=== PATIENT | male | born 2000 | race Caucasian/White ===

== ENCOUNTER 2023-08-30 17:30 | Emergency (ER) | payer SELFPAY ==
[2023-08-30 17:36] VITALS: BP 160/91; PULSE 57; RESP 18; TEMP 36.4; O2SAT 95
--- NOTE | 2023-08-30 17:45 | XRR_ITS ---
PROCEDURE INFORMATION: Exam: XR Chest Exam date and time: 08/30/2023 6:14 PM Age: 22 years old Clinical indication: Shortness of breath; Patient HX: HTN; Bradycardia; AMS TECHNIQUE: Imaging protocol: Radiologic exam of the chest. Views: 1 view. COMPARISON: No relevant prior studies available. FINDINGS: Lungs: Unremarkable. No consolidation. Pleural spaces: Unremarkable. No pleural effusion. No pneumothorax. Heart/Mediastinum: Unremarkable. No cardiomegaly. Bones/joints: Unremarkable. XR/XR chest 1V portable [id number] IMPRESSION: No acute findings.
--- NOTE | 2023-08-30 17:45 | ECG_ITS ---
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 [email or web address]
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
[2023-08-30 17:57] LABS: Glucose Point of Care 133 mg/dL (70-110)
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
[2023-08-30 17:58] LABS: Basophils % 0.1 %; Hematocrit 47.8 % (37-53); Lymphocytes # 0.5 10^3/uL (0.8-4.8); Lymphocytes % 2.2 %; Mean Corpuscular HGB Conc 33.1 g/dL (30-55); Mean Corpuscular Hemoglobin 29.4 pg (27-33); Mean Corpuscular Volume 88.8 fl (82-101); Mean Platelet Volume 10.4 fL (7.4-10.4); Monocytes % 4.6 %; Neutrophils # 18.95 10^3/uL (1.8-7.7); Neutrophils % 92.6 %; Nucleated Red Blood Cells % 0 %; Platelet Count 252 10^3/cmm (157-399); Red Blood Count 5.38 10^6/uL (3.85-5.65)
[2023-08-30 18:17] LABS: Ketone (Acetest) Serum Negative (Negative)
[2023-08-30 18:36] LABS: Alanine Aminotransferase 27 U/L (0-41); Albumin Level 5.3 g/dL (3.5-5.2); Alkaline Phosphatase 70 U/L (40-130); Anion Gap 13.6 (5-19); Aspartate Amino Transferase 21 U/L (0-40); Blood Urea Nitrogen 20 mg/dL (6-20); Calcium 9.4 mg/dL (8.5-10.5); Carbon Dioxide 30 mmol/L (22-29); Chloride 98 mmol/L (98-107); Glomerular Filtration Rate 91.8 mL/min (90-130); Glucose 159 mg/dL (65-115); INR 0.97 (0.8-1.2); Osmolality Calculated 292 mOsm/kg (285-295); Potassium 3.6 mmol/L (3.5-5.1); Sodium 138 mmol/L (136-145); Thyroid Stimulating Hormone 0.59 uIU/mL (0.27-4.20); Total Bilirubin 0.2 mg/dL (0.15-1.2); Total Protein 8.3 g/dL (6.6-8.7)
[2023-08-30] MEDS: sodium chloride 0.9% 1,000 ML 999 ML IV (18:49)
[2023-08-30 20:10] LABS: Urine Appearance Clear (CLEAR); Urine Color Yellow (Yellow); pH Urine 5 (5-7)
[2023-08-30 20:11] LABS: Add Urine Microscopic? YES; Bilirubin Urine Neg (Negative); Blood Urine Neg (Negative); Glucose Urine UA 1+ (Normal); Ketones Urine 1+ (Negative); Leukocyte Esterase Urine Negative (Negative); Nitrate Urine Negative (Negative); Protein Urine 1+ (Negative); Urobilinogen Urine Norm (Negative)
[2023-08-30 20:16] LABS: Amphetamines Screen Urine Negative (Negative); Bacteria Urine TRACE /hpf; Barbiturates Screen Urine Negative (Negative); Benzodiazepines Screen Urine Negative (Negative); Cocaine Screen Urine Positive (Negative); Opiate Screen Urine Negative (Negative); PCP Screen Urine Negative (Negative); RBC Urine 0-4 /hpf (0-2); Squamous Epithelial Cell Urine 0-4 /hpf (0-5); THC Screen Urine Positive (Negative); WBC Urine 0-4 /hpf (0-5)
[2023-08-30 20:17] LABS: Alcohol Level < 10 mg/dL (0-10)
== END 2023-08-30 21:09 | disposition home or self-care (01) ==
PROVIDERS: Emergency Medicine; Emergency Provider Emergency Medicine
DX: S06.0X0A Concussion without loss of consciousness, initial encounter (principal); R41.82 Altered mental status, unspecified; T40.5X5A Adverse effect of cocaine, initial encounter; T40.715A Adverse effect of cannabis, initial encounter; W22.8XXA Striking against or struck by other objects, initial encounter
CPT/HCPCS: 36416; 70450; 71045; 80053; 80306; 80307; 81001; 82009; 82962; 83735; 84443; 85025; 85610; 93005; 99285; J7030

== ENCOUNTER 2024-04-19 08:03 | Emergency (ER) | payer OTHER, SELFPAY ==
[2024-04-19 08:16] VITALS: BP 105/51; PULSE 44; TEMP 36.6; O2SAT 96; BMI 26.5
--- NOTE | 2024-04-19 08:18 | XR_ITS ---
WS: [id number] Examination: XR hand LT min 3V* [id number] Reason for Exam: trauma Date: April 19, 2024 Comparison: None. Findings: There is a bandage around the second through fifth digits. This causes mild artifact. Soft tissue injury is suspected involving these digits at the level of the proximal interphalangeal j oint. Overall the bone density is maintained. There is no destruction No displaced fracture or dislocations identified. XR/XR hand LT min 3V* [id number] Impression: Soft tissue injury suspected. I see no displaced fracture or dislocation.
--- NOTE | 2024-04-19 08:22 | ED_ITS ---
HPI - Extremity Injury (Upper) General: Chief Complaint: Wound/Laceration Stated Complaint: smashed left hand lac Time Seen by Provider: 04/19/24 08:18 History of Present Illness: 23-year-old male presents emergency room after a crush injury to his left hand. Involves his left second and third fingers. There is a mild amount of bleeding patient has a paper towel wrapped on his hand as a bandage when I first arrived. His last tetanus shot was within the last 4 to 5 years. He works at a [employer] and got his hand between a board and some rollers. He denies any other injuries. He still has sensation in the affected fingers distally and can flex and extend. Associated symptoms: Denies neck pain Related Data Previous Rx's Medication Instructions Recorded ondansetron 4 mg disintegrating 4 mg PO Q6H PRN nausea and 08/30/23 tablet vomiting #14 tabs amoxicillin 875 mg-potassium 1 tab PO BID #20 tabs 04/19/24 clavulanate 125 mg tablet hydrocodone 5 mg-acetaminophen 325 1 tab PO Q6H PRN pain #15 tabs 04/19/24 mg tablet mupirocin 2 % topical ointment 1 applic topical BID #50 grams 04/19/24 Allergies Allergy/AdvReac Type Severity Reaction Status Date / Time Sulfa (Sulfonamide Allergy Unknown Verified 04/19/24 08:30 Antibiotics) Review of Systems Const: Denies: fever(s) or chills Card: Denies: chest pain Resp: Denies: dyspnea GI: Denies: abdominal pain : Denies: dysuria, urinary frequency or urinary urgency Musc: Denies: neck pain or back pain Skin/Breast: Denies: rash Physical Exam Const: COMMON NORMALS: no acute distress GENERAL APPEARANCE: cooperative and comfortable ORIENTATION/CONSCIOUSNESS: Yes awake, Yes oriented to person, Yes oriented to place and Yes oriented to time HENMT: COMMON NORMALS: normocephalic, atraumatic and hearing grossly normal bilaterally HEAD & SCALP: normocephalic and atraumatic Resp: COMMON NORMALS: normal respiratory effort, No retractions, No use of accessory muscles and clear to auscultation bilaterally AUSCULTATION: clear to auscultation bilaterally Cardio: COMMON NORMALS: regular rate, regular rhythm and No murmurs present (Cardio) RATE: regular rate RHYTHM: regular rhythm Extremity: COMMON NORMALS: normal to inspection, capillary refill normal, no clubbing, cyanosis or edema, no calf tenderness and no pedal edema OTHER: Full-thickness laceration the palmar surface of the left second and third fingers extends to the palm at the base of the left third finger exposed tendon on the second finger palmar surface. Patient is able to flex no active bleeding. Neuro: SENSORIUM/ORIENTATION: Yes oriented to person, Yes oriented to place and Yes oriented to time Skin: COMMON NORMALS: no rashes or lesions noted GENERAL SKIN EXAM: no rashes or lesions noted Procedures Laceration Laceration 1: Site: hand (Third digit volar surface) Side (If applicable): left Size (cm): 1 Description: linear Depth: simple, single layer Local Anesthetic: other anesthetic (Digital nerve block) Pre-repair: wound explored and irrigated extensively Skin layer closed with: nylon Size (cm): 4-0 Number of sutures: 1 Laceration 2: Site: hand Side (If applicable): left Size (cm): 4 Description: irregular and clean Depth: simple, single layer Local Anesthetic: other anesthetic (Digital nerve block) Pre-repair: wound explored and irrigated extensively Size (cm): 4-0 Technique: simple, interrupted (Wound edges approximated using a combination of running and intermittent sutures) and running Laceration 3: Site: hand Side (If applicable): left Size (cm): 6 Description: flap, irregular, clean and other (Flexor tendon exposed from the MCP to the PIP joints) Depth: simple, single layer Local Anesthetic: lidocaine 1% and other anesthetic (Digital nerve block) Pre-repair: wound explored, irrigated extensively, deep structures intact and wound margins revised Skin layer closed with: other Size (cm): 4-0 Technique: simple, interrupted and running (Wound closed with combination of running and interrupted sutures) Nerve Block Nerve Block 1: Time out performed: Yes Local Anesthetic: lidocaine 1% Amount of anesthesia used (mL): 3 Side: left Nerve Blocks: digital (Third finger) Procedure Successful: Yes Patient Tolerated Procedure: well Complications: none Additional Comments: Proximal portion palmar surface reinforced with local infiltration of anesthesia Nerve Block 2: Local Anesthetic: lidocaine 1% Amount of anesthesia used (mL): 3 Side: left Nerve Blocks: digital Procedure Successful: Yes Patient Tolerated Procedure: well and no complications Complications: none Additional Comments: Proximal portion palmar surface reinforced with local infiltration of anesthesia Course Vital Signs: Vital signs: Vital Signs Temperature 97.9 F 04/19/24 08:16 Pulse Rate 58 L 04/19/24 10:48 Blood Pressure 120/65 04/19/24 10:00 Pulse Oximetry 97 04/19/24 10:48 Oxygen Delivery Me thod Room Air 04/19/24 10:00 MDM - Extremity Injury (Upper) Medical Decision Making Very irregular lacerations closed as per note above patient was anesthetized with digital nerve blocks of the third and fourth fingers on the left and in the palmar portions that were slightly proximal reinforced with local anesthesia. Extensive irrigation with 500 mL of sterile water. On the third finger the flexor tendon is fully exposed it appears that sheath of the tendon somewhat injured but the tendon itself is intact. Patient is able to flex and extend and has no defects noted he is able to hold against resistance on both third and fourth fingers sensation is intact prior to the and anesthesia being given. Wound edges were approximated as best possible without putting too much tension on the wound. There is enough swelling over the third finger that the skin edges could not be completely reapproximated. More approximated is much as possible without putting undue tension on the skin. Apply topical antibiotic ointment was given a gram of Ancef in the emergency room started on Augmentin to discharge. Tetanus is up-to-date also given pain medications written for off work I discussed case with Dr. Huerta he is willing to see the patient a couple days in the office Medical Records I reviewed the patient's medical records. Lab Data Radiology Impressions Hand X-Ray 04/19/24 08:18 Impression: Soft tissue injury suspected. I see no displaced fracture or dislocation. All radiology interpretation(s) finalized by discharge Discharge Plan Discharge Patient Disposition: Home Clinical Impression: Laceration Condition: Stable Prescriptions: New amoxicillin-pot clavulanate 875-125 mg tablet 1 tab PO BID Qty: 20 0RF hydrocodone-acetaminophen 5-325 mg tablet 1 tab PO Q6H PRN (Reason: pain) Qty: 15 0RF mupirocin 2 % ointment 1 applic topical BID Qty: 50 0RF No Action ondansetron 4 mg tablet,disintegrating 4 mg PO Q6H PRN (Reason: nausea and vomiting) Qty: 14 0RF Discharge Orders: Discharge ED (Routine); Ordered 04/19/24 Ordered By: Ketan Hollins Patient Instructions: Opioid Safety, Pain Management Activity Restrictions/Additional Instructions: Thank you for choosing [facility] for your healthcare needs today. It is very important that you follow up as instructed or that you return to the Emergency Department should you have concerns or if your condition changes or worsens in any way. You were seen today for crush injury to your hand. There did not appear to be any tendon damage done on exam. Wounds were closed loosely with suture apply topical antibiotic ointment twice a day. You should also take oral antibiotics twice daily until the course is completed the sutures should be removed in 10 to 14 days you should follow-up in the Ortho clinic in 2 days. 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
[2024-04-19] MEDS: ceFAZolin 1,000 mg SDV 1000 MG IVP (08:36)
[2024-04-19] MEDS: ketorolac 30 mg/mL INJ IVP (08:36)
[2024-04-19] MEDS: lidocaine 1% INJ 10 mL (per mL) 20 ML SUBCUT (09:53)
[2024-04-19 10:00] VITALS: BP 120/65; PULSE 56; O2SAT 98
[2024-04-19] MEDS: mupirocin oint 22 gm 1 APPLIC TOPICAL (10:32)
[2024-04-19 10:48] VITALS: PULSE 58; O2SAT 97
--- NOTE | 2024-04-19 11:04 | DCPLANNER ---
messaged ortho for er f/u
== END 2024-04-19 10:51 | disposition home or self-care (01) ==
PROVIDERS: Emergency Provider Family Medicine
DX: S61.211A Laceration without foreign body of left index finger without damage to nail, initial encounter (principal); S61.213A Laceration without foreign body of left middle finger without damage to nail, initial encounter; W23.0XXA Caught, crushed, jammed, or pinched between moving objects, initial encounter; Y99.0 Civilian activity done for income or pay
CPT/HCPCS: 12004; 73130; 96374; 96375; 99284; A6446; J0690; J1885

== ENCOUNTER 2024-05-04 13:41 | Outpatient (RCR) | payer OTHER, SELFPAY | END 2024-05-08 18:00 | disposition home or self-care (01) | LOC: SOT 13:41 | PROVIDERS: Visit Provider Plastic Surgery Surgery of the Hand | DX: S67.22XA Crushing injury of left hand, initial encounter (principal); X58.XXXA Exposure to other specified factors, initial encounter | CPT/HCPCS: 97022; 97110; 97140; 97165; 97530 ==

== ENCOUNTER 2024-05-09 06:00 | Outpatient (RCR) | payer OTHER, SELFPAY | END 2024-06-07 23:59 | disposition home or self-care (01) | LOC: SOT 06:00 | PROVIDERS: Visit Provider Plastic Surgery Surgery of the Hand | DX: S61.211A Laceration without foreign body of left index finger without damage to nail, initial encounter (principal); S61.213A Laceration without foreign body of left middle finger without damage to nail, initial encounter; W23.0XXA Caught, crushed, jammed, or pinched between moving objects, initial encounter | CPT/HCPCS: 97022; 97110; 97140 ==

== ENCOUNTER 2024-06-08 06:00 | Outpatient (RCR) | payer OTHER, SELFPAY | END 2024-07-08 23:59 | disposition home or self-care (01) | LOC: SOT 06:00 | PROVIDERS: Visit Provider Plastic Surgery Surgery of the Hand | DX: S67.22XA Crushing injury of left hand, initial encounter (principal); X58.XXXA Exposure to other specified factors, initial encounter | CPT/HCPCS: 97022; 97110; 97140 ==

== ENCOUNTER 2024-06-20 04:16 | Emergency (ER) | payer SELFPAY ==
[2024-06-20] VITALS (8 sets, daily range): BP systolic 109–151; BP diastolic 61–75; PULSE 59–99; RESP 14–20; TEMP 36.6; O2SAT 95–99; BMI 28.7
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
[2024-06-20] MEDS: ketorolac 60 mg/2 mL INJ IM (09:21)
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
== END 2024-06-20 10:36 | disposition home or self-care (01) ==
PROVIDERS: Emergency Provider Emergency Medicine
DX: S01.01XA Laceration without foreign body of scalp, initial encounter (principal); S00.81XA Abrasion of other part of head, initial encounter; S70.212A Abrasion, left hip, initial encounter; V86.55XA Driver of 3- or 4- wheeled all-terrain vehicle (ATV) injured in nontraffic accident, initial encounter
CPT/HCPCS: 12002; 70450; 71045; 71250; 72125; 73522; 96372; 99284; J1885

== ENCOUNTER 2024-11-19 23:55 | Emergency (ER) | payer SELFPAY ==
[2024-11-19 23:57] VITALS: BP 143/74; PULSE 87; RESP 20; TEMP 36.4; O2SAT 95; BMI 28.7
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
[2024-11-20] MEDS: lidocaine-epi 1% 20 mL INJ (00:27)
[2024-11-20] MEDS: ondansetron 2 mg/ML SDV 2 mL 4 MG IVP (00:27)
[2024-11-20] MEDS: HYDROmorphone 0.5 MG/0.5 ML INJ 1 MG IVP (00:27)
[2024-11-20 00:51] VITALS: BP 150/73; PULSE 83; RESP 22; O2SAT 96
[2024-11-20 00:56] LABS: Basophils # 0.1 10^3/uL (0.0-0.1); Basophils % 0.2 %; Hematocrit 47.6 % (37-53); Lymphocytes # 0.7 10^3/uL (0.8-4.8); Lymphocytes % 2.7 %; Mean Corpuscular HGB Conc 31.9 g/dL (30-55); Mean Corpuscular Hemoglobin 30.3 pg (27-33); Mean Platelet Volume 10.3 fL (7.4-10.4); Monocytes # 2.1 10^3/uL (0.2-0.9); Monocytes % 8.1 %; Neutrophils % 88.3 %; Nucleated Red Blood Cells % 0 %; Platelet Count 199 10^3/cmm (157-399); Red Blood Count 5.01 10^6/uL (3.85-5.65); Red Cell Distribution Width 12.8 % (12.1-15.1); White Blood Count 25.82 10^3/uL (3.29-11.43)
[2024-11-20 01:14] LABS: Blood Urea Nitrogen 18 mg/dL (6-20); Calcium 9.1 mg/dL (8.5-10.5); Carbon Dioxide 21 mmol/L (22-29); Chloride 103 mmol/L (98-107); Creatinine Clr Calc Pharmacy 106.5975; Glomerular Filtration Rate 73.8 mL/min (90-130); Glucose 148 mg/dL (65-115); Osmolality Calculated 285 mOsm/kg (285-295); Sodium 135 mmol/L (136-145)
[2024-11-20 01:15] LABS: Anion Gap 15.2 (5-19); Potassium 4.2 mmol/L (3.5-5.1)
[2024-11-20] MEDS: HYDROmorphone 0.5 MG/0.5 ML INJ IVP (01:24)
[2024-11-20] MEDS: iohexol 350 mg/mL 500 mL Btl (per mL) IV (01:45)
[2024-11-20 01:54] VITALS: BP 160/91; PULSE 86; RESP 26; O2SAT 96
[2024-11-20 02:30] VITALS: BP 149/83; PULSE 62; RESP 17; O2SAT 95
== END 2024-11-20 02:33 | disposition short-term general hospital (02) ==
PROVIDERS: Emergency Medicine; Emergency Provider Emergency Medicine
DX: S25.01XA Minor laceration of thoracic aorta, initial encounter (principal); S37.032A Laceration of left kidney, unspecified degree, initial encounter; S02.85XA Fracture of orbit, unspecified, initial encounter for closed fracture; S02.40DA Maxillary fracture, left side, initial encounter for closed fracture; S27.321A Contusion of lung, unilateral, initial encounter; S22.49XA Multiple fractures of ribs, unspecified side, initial encounter for closed fracture; X37.1XXA Tornado, initial encounter
CPT/HCPCS: 36415; 70450; 70486; 71260; 72125; 74177; 80048; 85025; 96374; 96375; 96376; 99285; J1171; J2405; J9999